=== PATIENT | female | born 1945 | race Caucasian/White ===

== ENCOUNTER 2017-11-13 07:13 | Day surgery (SDC) | payer OTHER ==
[~2017-11-13 07:13] MED LIST: CALTRATE 600 +1 EACH PO; NORVASC5 MG PO; SIMVASTATIN20 MG PO; SYNTHROID88 MCG PO
== END 2017-11-13 13:35 | disposition home or self-care (01) ==
LOC: AMB-ENDOS 07:13
DX: K64.1 Second degree hemorrhoids (principal)

== ENCOUNTER 2020-12-19 09:22 | Inpatient (IN) | payer OTHER ==
[~2020-12-19] VITALS: Ht 152.4 cm; Wt 62.6 kg
[2020-12-20] MEDS ORDERED: ATORVASTATIN CA20 MG (08:14)
[2020-12-20] MEDS ORDERED: SYNTHROID75 MCG (08:15)
[2020-12-31] MEDS ORDERED: PREDNISONE20 MG PO (13:41)
[2020-12-31] MEDS ORDERED: INTESTINEX680 M1 PO (13:41)
[2020-12-31] MEDS ORDERED: LEVOTHYROXINE75 MCG PO (13:41)
[2020-12-31] MEDS ORDERED: NORVASC5 MG PO (13:41)
[2020-12-31] MEDS ORDERED: CHOLESTYRAMINE L4 GM PO (13:41)
[2020-12-31] MEDS ORDERED: PEPCID AC20 MG PO (13:41)
[2020-12-31] MEDS ORDERED: LEVOTHYROXINE88 MCG PO (13:41)
[2020-12-31] MEDS ORDERED: DELZICOL400 M1 PO (13:41)
[2020-12-31] MEDS ORDERED: ATORVASTATIN CA20 MG PO (13:41)
== END 2020-12-31 16:54 | disposition home or self-care (01) | DRG 392 ==
LOC: ER 09:22 → MEDJ 18:44
PROVIDERS: ADMIT Internal Medicine Geriatric Medicine; ATTEND Internal Medicine Geriatric Medicine
PROC: 02HV33Z Insertion of Infusion Device into Superior Vena Cava, Percutaneous Approach (ICD-10-PCS; 2020-12-20)
PROC: 0DBM8ZX Excision of Descending Colon, Via Natural or Artificial Opening Endoscopic, Diagnostic (ICD-10-PCS; principal; 2020-12-28)
PROC: 0DBN8ZX Excision of Sigmoid Colon, Via Natural or Artificial Opening Endoscopic, Diagnostic (ICD-10-PCS; 2020-12-28)
PROC: 0DBP8ZX Excision of Rectum, Via Natural or Artificial Opening Endoscopic, Diagnostic (ICD-10-PCS; 2020-12-28)
DX: K52.89 Other specified noninfective gastroenteritis and colitis (principal); K62.5 Hemorrhage of anus and rectum; E03.8 Other specified hypothyroidism; I10 Essential (primary) hypertension; Z20.822 Contact with and (suspected) exposure to COVID-19

== ENCOUNTER 2021-06-21 07:39 | Outpatient (CLI) | payer OTHER ==
[~2021-06-21 07:39] MED LIST changes: +ATORVASTATIN CA20 MG; +ATORVASTATIN CA20 MG PO; +CHOLESTYRAMINE L4 GM PO; +DELZICOL400 M1 PO; +INTESTINEX680 M1 PO; +LEVOTHYROXINE75 MCG PO; +LEVOTHYROXINE88 MCG PO; +PEPCID AC20 MG PO; +PREDNISONE20 MG PO; +SYNTHROID75 MCG
== END 2021-06-21 09:23 | disposition home or self-care (01) ==
LOC: NUCLEAR 07:39
PROVIDERS: ATTEND Internal Medicine Cardiovascular Disease
DX: I25.118 Atherosclerotic heart disease of native coronary artery with other forms of angina pectoris (principal); I50.1 Left ventricular failure, unspecified
CPT/HCPCS: 78452; 93017; A9500; J0153

== ENCOUNTER 2021-10-10 09:55 | Outpatient (CLI) | payer OTHER | END 2021-10-10 09:56 | disposition home or self-care (01) | LOC: NUCLEAR 09:55 | PROVIDERS: ATTEND Podiatrist Foot & Ankle Surgery | DX: I87.9 Disorder of vein, unspecified (principal); R20.8 Other disturbances of skin sensation ==

== ENCOUNTER → 2021-10-11 09:44 | Outpatient (CLI) | payer OTHER | END | disposition home or self-care (01) | LOC: NUCLEAR 09:44 | PROVIDERS: ATTEND Podiatrist Foot & Ankle Surgery | DX: I87.9 Disorder of vein, unspecified (principal) ==

== ENCOUNTER 2023-09-24 10:32 | Inpatient (IN) | payer OTHER ==
[~2023-09-24] VITALS: Ht 152.4 cm; Wt 62.6 kg
[2023-09-24] MEDS ORDERED: CARBIDOPA-LEVO1 EAC1 (11:08)
[2023-09-24] MEDS ORDERED: FAMOTIDINE/PF 20 MG/2 ML VIAL IV ONE (14:45)
[2023-09-24] MEDS ORDERED: LACTOBACILLUS ACIDOPHILUS 1 CAP CAP PO ONE (14:45)
[2023-09-24] MEDS ORDERED: 0.9 % SODIUM CHLORIDE 500 ML IV ONE (14:45)
[2023-09-24 15:58] LABS: URINE APPEARANCE Cloudy; URINE BILIRRUBIN Negative (NEGATIVE); URINE BLOOD Moderate; URINE COLOR Dark Yellow; URINE GLUCOSE Negative (NEGATIVE); URINE LEUKOCYTE Small; URINE NITRATE Negative; URINE PROTEIN Trace (NEGATIVE); URINE UROBILINOGEN 0.2 E.U./dl
[2023-09-24 16:00] LABS: HEMATOCRIT 41.5 % (36.0-45.00); MEAN CELL VOLUME 84.6 fL (80.00-100.00); MEAN CORPUSCULAR HEMOGLOBIN 28.6 pg (27.00-32.0); MEAN CORPUSCULAR HGB CONC 33.8 g/dl (32.0-36.0); PLATELET COUNT 277 K/uL (150-450); RED BLOOD COUNT 4.91 M/uL (4.00-6.00)
[2023-09-24 16:02] LABS: URINE BACTERIA 2663.4 uL (0.0-1933); URINE EPITHELIAL CELLS 103.4 uL (0.0-38.8); URINE RBC 35.7 uL (0.0-20.8); URINE WBC 138.9 uL (0.0-23.2)
[2023-09-24 16:25] LABS: CALCIUM 9.8 mg/dL (8.5-10.1); CREATININE SERUM 0.97 mg/dL (0.55-1.02); GFR 55.68; POTASSIUM 3.17 mEq/L (3.5-5.1)
[2023-09-24 16:47] LABS: FECAL LEUKOCYTES POSITIVE (NEGATIVE); ob POSITIVE (NEGATIVE)
[2023-09-24] MEDS ORDERED: 0.9 % SODIUM CHLORIDE 1,000 ML IV SCH (20:00)
[2023-09-24] MEDS ORDERED: PANTOPRAZOLE SODIUM 40 MG/VIAL VIAL IV SCH (20:05)
[2023-09-24] MEDS ORDERED: PIPERACILLIN/TAZOBACTAM SODIUM 3.375 GM in DEXTROSE 5 % IN WATER 100 ML IV SCH (20:05)
[2023-09-24] MEDS ORDERED: ACETAMINOPHEN 500 MG GEL..CAP PO PRN (20:15)
[2023-09-24] MEDS ORDERED: POTASSIUM CHLORIDE 20MEQ/100ML H2O PB IV ONE (20:15)
[2023-09-24] MEDS ORDERED: ONDANSETRON HCL 4 MG in 0.9 % SODIUM CHLORIDE 50 ML IV PRN (20:15)
[2023-09-24] MEDS ORDERED: PROMETHAZINE HCL 50 MG/ML AMPUL IM ONE (23:30)
[2023-09-24] MEDS ORDERED: MEPERIDINE HCL/PF 25 MG/ML VIAL IM PRN (23:30)
[2023-09-24] MEDS ORDERED: MEPERIDINE HCL/PF 50 MG/ML VIAL IM ONE (23:30)
[2023-09-25 00:29] LABS: INR 1.04; PARTIAL THROMBOPLASTIN TIME 28.4 SECONDS (22.0-34.0); PROTHROMBIN TIME 10.9 SECONDS (9.0-11.5)
[2023-09-25 00:30] LABS: MAGNESIUM 2.3 mg/dL (1.8-2.4); PHOSPHOROUS 3.4 mg/dL (2.5-4.9)
[2023-09-25] MEDS ORDERED: LEVOTHYROXINE SODIUM 88 MCG TABLET PO SCH (06:00)
[2023-09-25] MEDS ORDERED: CARBIDOPA/LEVODOPA 25/100 UDTAB PO SCH (09:00)
[2023-09-25] MEDS ORDERED: ATORVASTATIN CALCIUM 20 MG TABLET PO SCH (09:00)
[2023-09-25] MEDS ORDERED: AMLODIPINE BESYLATE 5 MG TABLET PO SCH (09:00)
[2023-09-26 00:50] LABS: CALCIUM 8.6 mg/dL (8.5-10.1); CHOL HDL RATIO 2.8 (0-5.0); CREATININE SERUM 0.77 mg/dL (0.55-1.02); GFR 72.69; POTASSIUM 4.26 mEq/L (3.5-5.1)
[2023-09-26] MEDS ORDERED: AA 4.25%/CAL/LYTES/DEXT 5% 1,000 ML PERIFERAL SCH (17:00)
[2023-09-28 05:29] LABS: HEMATOCRIT 37.6 % (36.0-45.00); HEMOGLOBIN 12.8 g/dL (12.0-15.00); MEAN CELL VOLUME 83.7 fL (80.00-100.00); MEAN CORPUSCULAR HEMOGLOBIN 28.5 pg (27.00-32.0); MEAN CORPUSCULAR HGB CONC 34.1 g/dl (32.0-36.0); PLATELET COUNT 279 K/uL (150-450); RED BLOOD COUNT 4.49 M/uL (4.00-6.00); RED CELL DISTRIBUTION WIDTH 13.6 % (11.5-14.5)
[2023-09-28 05:54] LABS: CALCIUM 8.8 mg/dL (8.5-10.1); CREATININE SERUM 0.84 mg/dL (0.55-1.02); GFR 65.74; POTASSIUM 3.01 mEq/L (3.5-5.1)
[2023-09-29] MEDS ORDERED: PEG3350/SOD SULF,BICARB,CL/KCL 4,000 ML GALLON PO ONE (19:00)
[2023-09-30 06:49] LABS: BILIRUBIN TOTAL 0.7 mg/dL (0.3-1.2); BILIRUBIN,CONJUGATED 0.24 mg/dL (0.0-0.2); BILIRUBIN,UNCONJUGATED 0.46 mg/dL (0.0-0.6); TOTAL PROTEIN 6.3 gm/dL (6.4-8.2)
[2023-09-30 07:00] LABS: C-REACTIVE PROTEIN 3.36 MG/DL (0.00-0.29)
[2023-09-30] MEDS ORDERED: METHYLPREDNISOLONE SOD SUCC 40 MG VIAL IV SCH (12:54)
[2023-09-30] MEDS ORDERED: fentaNYL CITRATE 50 MCG/ML AMPUL IV ONE (13:00)
[2023-09-30] MEDS ORDERED: MIDAZOLAM HCL 2 MG/2 ML VIAL IV ONE (13:00)
[2023-10-02 06:41] LABS: HEMATOCRIT 35.6 % (36.0-45.00); HEMOGLOBIN 12.2 g/dL (12.0-15.00); MEAN CELL VOLUME 82.2 fL (80.00-100.00); MEAN CORPUSCULAR HEMOGLOBIN 28.1 pg (27.00-32.0); MEAN CORPUSCULAR HGB CONC 34.2 g/dl (32.0-36.0); PLATELET COUNT 310 K/uL (150-450); RED BLOOD COUNT 4.33 M/uL (4.00-6.00)
[2023-10-02 10:31] LABS: ALBUMIN 3.1 gm/dL (3.4-5.0); BILIRUBIN TOTAL 0.6 mg/dL (0.3-1.2); CALCIUM 9.1 mg/dL (8.5-10.1); CREATININE SERUM 1.07 mg/dL (0.55-1.02); GFR 49.72; GLOBULINA 3.6 G/DL (2.4-3.5); TOTAL PROTEIN 6.7 gm/dL (6.4-8.2)
[2023-10-02 10:38] LABS: POTASSIUM 2.73 mEq/L (3.5-5.1)
[2023-10-02] MEDS ORDERED: POTASSIUM CHLORIDE 20MEQ/100ML H2O PB IV ONE (14:45)
[2023-10-05 12:36] LABS: HEMATOCRIT 36.2 % (36.0-45.00); HEMOGLOBIN 12.1 g/dL (12.0-15.00); MEAN CELL VOLUME 85.2 fL (80.00-100.00); MEAN CORPUSCULAR HEMOGLOBIN 28.6 pg (27.00-32.0); MEAN CORPUSCULAR HGB CONC 33.6 g/dl (32.0-36.0); PLATELET COUNT 247 K/uL (150-450); RED BLOOD COUNT 4.24 M/uL (4.00-6.00)
[2023-10-05 12:59] LABS: ALBUMIN 2.9 gm/dL (3.4-5.0); BILIRUBIN TOTAL 0.45 mg/dL (0.3-1.2); CALCIUM 8.8 mg/dL (8.5-10.1); CREATININE SERUM 0.87 mg/dL (0.55-1.02); GFR 63.13; GLOBULINA 3.5 G/DL (2.4-3.5); MAGNESIUM 2.4 mg/dL (1.8-2.4); PHOSPHOROUS 2.8 mg/dL (2.5-4.9); POTASSIUM 3.57 mEq/L (3.5-5.1); TOTAL PROTEIN 6.4 gm/dL (6.4-8.2)
[2023-10-05] MEDS ORDERED: PREDNISONE 20 MG TABLET PO SCH (16:11)
[2023-10-05] MEDS ORDERED: METHYLPREDNISOLONE SOD SUCC 40 MG VIAL IV SCH (21:00)
[2023-10-05] MEDS ORDERED: GABAPENTIN 300 MG CAPSULE PO SCH (21:00)
[2023-10-06] MEDS ORDERED: FAMOtidine 20 MG TABLET PO SCH (09:00)
[2023-10-07] MEDS ORDERED: CARBIDOPA-LEVO1 EA10 PO (11:03)
[2023-10-07] MEDS ORDERED: LEVOTHYROXINE88 MCG PO (11:03)
[2023-10-07] MEDS ORDERED: AMLODIPINE BESYL5 MG PO (11:03)
[2023-10-07] MEDS ORDERED: FAMOTIDINE20 MG PO (11:03)
[2023-10-07] MEDS ORDERED: LIPITOR20 MG PO (11:03)
[2023-10-07] MEDS ORDERED: PREDNISONE20 MG PO (11:03)
[2023-10-07] MEDS ORDERED: GABAPENTIN300 MG PO (11:03)
== END 2023-10-07 13:15 | disposition home or self-care (01) | DRG 386 ==
LOC: ER 10:33 → SEC-K 20:40 → MEDJ 20:40
PROVIDERS: General Practice; Internal Medicine; Internal Medicine Gastroenterology; Nurse Practitioner Family; ADMIT Internal Medicine; ATTEND Internal Medicine
PROC: BW21ZZZ Computerized Tomography (CT Scan) of Abdomen and Pelvis (ICD-10-PCS; 2023-09-24)
PROC: 3E0336Z Introduction of Nutritional Substance into Peripheral Vein, Percutaneous Approach (ICD-10-PCS; 2023-09-27)
PROC: BW21ZZZ Computerized Tomography (CT Scan) of Abdomen and Pelvis (ICD-10-PCS; 2023-09-29)
PROC: 0DBK8ZX Excision of Ascending Colon, Via Natural or Artificial Opening Endoscopic, Diagnostic (ICD-10-PCS; principal; 2023-09-30)
PROC: 0DBL8ZX Excision of Transverse Colon, Via Natural or Artificial Opening Endoscopic, Diagnostic (ICD-10-PCS; 2023-09-30)
PROC: 0DBP8ZX Excision of Rectum, Via Natural or Artificial Opening Endoscopic, Diagnostic (ICD-10-PCS; 2023-09-30)
PROC: 0DBB8ZX Excision of Ileum, Via Natural or Artificial Opening Endoscopic, Diagnostic (ICD-10-PCS; 2023-09-30)
PROC: 0DBM8ZX Excision of Descending Colon, Via Natural or Artificial Opening Endoscopic, Diagnostic (ICD-10-PCS; 2023-09-30)
DX: K51.90 Ulcerative colitis, unspecified, without complications (principal); K92.1 Melena; K62.89 Other specified diseases of anus and rectum; E87.6 Hypokalemia; I10 Essential (primary) hypertension; E03.9 Hypothyroidism, unspecified; G20.A1 Parkinson's disease without dyskinesia, without mention of fluctuations; D72.828 Other elevated white blood cell count

== ENCOUNTER 2024-02-08 12:21 | Inpatient (IN) | payer OTHER ==
[~2024-02-08] VITALS: Ht 152.4 cm; Wt 56.7 kg
[~2024-02-08 12:21] MED LIST changes: +AMLODIPINE BESYL5 MG PO; +CARBIDOPA-LEVO1 EA10 PO; +CARBIDOPA-LEVO1 EAC1; +FAMOTIDINE20 MG PO; +GABAPENTIN300 MG PO; +LIPITOR20 MG PO
[2024-02-08] MEDS ORDERED: 0.9 % SODIUM CHLORIDE 1,000 ML IV SCH (13:15)
[2024-02-08 14:35] LABS: HEMATOCRIT 37.4 % (36.0-45.00); HEMOGLOBIN 12.6 g/dL (12.0-15.00); MEAN CELL VOLUME 83.7 fL (80.00-100.00); MEAN CORPUSCULAR HEMOGLOBIN 28.3 pg (27.00-32.0); MEAN CORPUSCULAR HGB CONC 33.7 g/dl (32.0-36.0); PLATELET COUNT 209 K/uL (150-450); RED BLOOD COUNT 4.47 M/uL (4.00-6.00)
[2024-02-08 15:01] LABS: INR 0.99; PARTIAL THROMBOPLASTIN TIME 24.2 SECONDS (22.0-34.0); PROTHROMBIN TIME 10.4 SECONDS (9.0-11.5)
[2024-02-08 15:02] LABS: CREATININE SERUM 1.06 mg/dL (0.55-1.02); GFR 50.13; POTASSIUM 3.69 mEq/L (3.5-5.1)
[2024-02-08] MEDS ORDERED: CEFTRIAXONE SODIUM 1,000 MG VIAL IV ONE (15:15)
[2024-02-08] MEDS ORDERED: CEFTRIAXONE SODIUM 1,000 MG VIAL ONE (15:29)
[2024-02-08 16:49] LABS: PH,URINE 6.5 (5.0-8.0); URINE APPEARANCE Clear; URINE BILIRRUBIN Negative (NEGATIVE); URINE BLOOD Negative; URINE COLOR Yellow; URINE GLUCOSE Negative (NEGATIVE); URINE KETONE Negative (NEGATIVE); URINE LEUKOCYTE Trace; URINE NITRATE Negative; URINE PROTEIN Negative (NEGATIVE); URINE UROBILINOGEN 0.2 E.U./dl
[2024-02-08 16:53] LABS: URINE BACTERIA 236.7 uL (0.0-1933); URINE EPITHELIAL CELLS 9.2 uL (0.0-38.8); URINE RBC 3.3 uL (0.0-20.8); URINE WBC 75.4 uL (0.0-23.2)
[2024-02-08 17:15] LABS: URINE CAST 0.15 uL (0.0-1.40)
[2024-02-08] MEDS ORDERED: PIPERACILLIN/TAZOBACTAM SODIUM 3.375 GM in DEXTROSE 5 % IN WATER 100 ML IV SCH (21:53)
[2024-02-08] MEDS ORDERED: VANCOMYCIN HCL 1,000 MG in 0.9 % SODIUM CHLORIDE 250 ML IV SCH (21:53)
[2024-02-08] MEDS ORDERED: GABAPENTIN 300 MG CAPSULE PO SCH (21:54)
[2024-02-08] MEDS ORDERED: MEPERIDINE HCL/PF 25 MG/ML VIAL IM ONE (22:00)
[2024-02-08] MEDS ORDERED: ONDANSETRON HCL 4 MG in 0.9 % SODIUM CHLORIDE 50 ML IV PRN (22:00)
[2024-02-08] MEDS ORDERED: ACETAMINOPHEN 500 MG GEL..CAP PO PRN (22:00)
[2024-02-08] MEDS ORDERED: KETOROLAC TROMETHAMINE 30 MG VIAL IU ONE (22:00)
[2024-02-09] MEDS ORDERED: KETOROLAC TROMETHAMINE 30 MG VIAL ONE (00:38)
[2024-02-09] MEDS ORDERED: VANCOMYCIN HCL 1,000 MG VIAL ONE (00:39)
[2024-02-09] MEDS ORDERED: PIPERACILLIN/TAZOBACTAM SODIUM 3.375 GM VIAL IV ONE (00:39)
[2024-02-09 01:40] LABS: INR 1.06; PARTIAL THROMBOPLASTIN TIME 27.9 SECONDS (22.0-34.0); PROTHROMBIN TIME 11.1 SECONDS (9.0-11.5)
[2024-02-09 01:47] VITALS: BP 109/69
[2024-02-09 06:00] VITALS: BP 122/65
[2024-02-09] MEDS ORDERED: LEVOTHYROXINE SODIUM 88 MCG TABLET PO SCH (06:00)
[2024-02-09] MEDS ORDERED: FAMOTIDINE/PF 20 MG in 0.9 % SODIUM CHLORIDE 8 ML IV PUSH SCH (09:00)
[2024-02-09] MEDS ORDERED: ENOXAPARIN SODIUM 40 MG/0.4 ML SYRINGE SUBCUTANEO SCH (09:00)
[2024-02-09] MEDS ORDERED: AMLODIPINE BESYLATE 5 MG TABLET PO SCH (09:00)
[2024-02-09 09:07] VITALS: BP 118/65
[2024-02-09] MEDS ORDERED: FAMOTIDINE/PF 20 MG/2 ML VIAL ONE (09:10)
[2024-02-09 16:43] VITALS: BP 115/56; O2SAT 99
[2024-02-09] MEDS ORDERED: LACTOBACILLUS ACIDOPHILUS 1 CAP CAP PO SCH (17:00)
[2024-02-09] MEDS ORDERED: 0.9 % SODIUM CHLORIDE 10 ML VIAL IJ ONE (21:06)
[2024-02-10] VITALS: BP 131/74
[2024-02-10 08:56] VITALS: BP 114/63
[2024-02-10] MEDS ORDERED: PREDNISONE 10 MG TABLET PO SCH (09:00)
[2024-02-10] MEDS ORDERED: SODIUM HYPOCHLORITE 1OZ TOP SCH (10:04)
[2024-02-10 17:17] LABS: URINE APPEARANCE Turbid; URINE BILIRRUBIN Negative (NEGATIVE); URINE BLOOD Small; URINE COLOR Yellow; URINE KETONE Negative (NEGATIVE); URINE LEUKOCYTE Trace; URINE NITRATE Negative; URINE PROTEIN Trace (NEGATIVE); URINE UROBILINOGEN 0.2 E.U./dl
[2024-02-10 17:18] LABS: URINE BACTERIA 251.9 uL (0.0-1933); URINE EPITHELIAL CELLS 20.4 uL (0.0-38.8); URINE RBC 25.1 uL (0.0-20.8); URINE WBC 79.9 uL (0.0-23.2)
[2024-02-10 17:39] LABS: URINE GLUCOSE >=1000 MG/DL (NEGATIVE)
[2024-02-10 18:51] VITALS: BP 117/72; O2SAT 98
[2024-02-11 01:53] VITALS: BP 132/73; O2SAT 97
[2024-02-11 09:00] LABS: HEMATOCRIT 34.8 % (36.0-45.00); HEMOGLOBIN 11.8 g/dL (12.0-15.00); MEAN CELL VOLUME 82.5 fL (80.00-100.00); MEAN CORPUSCULAR HGB CONC 33.9 g/dl (32.0-36.0); PLATELET COUNT 216 K/uL (150-450); RED BLOOD COUNT 4.22 M/uL (4.00-6.00); RED CELL DISTRIBUTION WIDTH 14.8 % (11.5-14.5)
[2024-02-11] MEDS ORDERED: FAMOtidine 20 MG TABLET PO SCH (09:00)
[2024-02-11] MEDS ORDERED: KETOROLAC TROMETHAMINE 30 MG VIAL IV PRN (09:15)
[2024-02-11 09:33] LABS: ALBUMIN 1.9 gm/dL (3.4-5.0); BILIRUBIN TOTAL 0.71 mg/dL (0.3-1.2); CREATININE SERUM 0.84 mg/dL (0.55-1.02); GFR 65.57; GLOBULINA 3.3 G/DL (2.4-3.5); POTASSIUM 3.43 mEq/L (3.5-5.1); TOTAL PROTEIN 5.2 gm/dL (6.4-8.2)
[2024-02-11 09:39] VITALS: BP 126/65
[2024-02-11 10:32] LABS: C-REACTIVE PROTEIN 21.4 MG/DL (0.00-0.29)
[2024-02-11 10:33] LABS: PHOSPHOROUS 1.7 mg/dL (2.5-4.9)
[2024-02-11] MEDS ORDERED: MESALAMINE 400 MG CAP.DRTAB. PO SCH (17:00)
[2024-02-11] MEDS ORDERED: POTASSIUM PHOS,M-BASIC-D-BASIC 18 MM in 0.9 % SODIUM CHLORIDE 250 ML IV SCH (17:00)
[2024-02-11 18:05] VITALS: BP 122/60; O2SAT 98
[2024-02-11] MEDS ORDERED: VANCOMYCIN HCL 1,000 MG in 0.9 % SODIUM CHLORIDE 250 ML IV SCH (21:00)
[2024-02-12 01:20] VITALS: BP 155/73; O2SAT 98
[2024-02-12] MEDS ORDERED: PREDNISONE 20 MG TABLET PO SCH (09:00)
[2024-02-12 09:13] VITALS: BP 104/63
[2024-02-12 17:45] VITALS: BP 138/76; O2SAT 98
[2024-02-13 02:59] VITALS: BP 113/73; O2SAT 96
[2024-02-13 09:01] LABS: ALBUMIN 1.6 gm/dL (3.4-5.0); BILIRUBIN TOTAL 0.48 mg/dL (0.3-1.2); CALCIUM 7.5 mg/dL (8.5-10.1); CREATININE SERUM 0.8 mg/dL (0.55-1.02); GFR 69.37; GLOBULINA 3.3 G/DL (2.4-3.5); MAGNESIUM 1.9 mg/dL (1.8-2.4); POTASSIUM 3.32 mEq/L (3.5-5.1); TOTAL PROTEIN 4.9 gm/dL (6.4-8.2)
[2024-02-13 09:05] LABS: C-REACTIVE PROTEIN 23.6 MG/DL (0.00-0.29)
[2024-02-13 09:29] VITALS: BP 118/69
[2024-02-13 10:38] LABS: HEMATOCRIT 30.6 % (36.0-45.00); HEMOGLOBIN 10.4 g/dL (12.0-15.00); MEAN CELL VOLUME 82.3 fL (80.00-100.00); PLATELET COUNT 205 K/uL (150-450); RED BLOOD COUNT 3.72 M/uL (4.00-6.00); RED CELL DISTRIBUTION WIDTH 14.9 % (11.5-14.5)
[2024-02-13 10:57] LABS: ERYTHROCYTE SEDIMENTATION RATE 97 mm/hr
[2024-02-13 17:59] VITALS: BP 144/69
[2024-02-14 03:24] VITALS: BP 150/79
[2024-02-14 09:15] VITALS: BP 137/72
[2024-02-14 18:25] VITALS: BP 120/66
[2024-02-14] MEDS ORDERED: CLOTRIMAZOLE 10 MG TROCHE MM SCH (21:00)
[2024-02-15 03:23] VITALS: BP 163/82; O2SAT 95
[2024-02-15] MEDS ORDERED: TUBERCULIN,PURIF.PROT.DERIV. 10 SKIN.TEST SKIN.TEST ID NR (06:45)
[2024-02-15] MEDS ORDERED: FLUCONAZOLE 100 MG TABLET PO SCH (09:00)
[2024-02-15 09:56] VITALS: BP 127/71; O2SAT 99
[2024-02-15 17:16] VITALS: BP 145/72
[2024-02-16] VITALS: BP 124/72
[2024-02-16 07:09] LABS: hav igm Negative (Negative); hcv Non Reactive (Non Reactive); hep b c Negative (Negative); hep b s ag Negative (Negative)
[2024-02-16 09:05] LABS: HEMATOCRIT 29.5 % (36.0-45.00); HEMOGLOBIN 10.1 g/dL (12.0-15.00); MEAN CELL VOLUME 83.5 fL (80.00-100.00); MEAN CORPUSCULAR HEMOGLOBIN 28.7 pg (27.00-32.0); MEAN CORPUSCULAR HGB CONC 34.3 g/dl (32.0-36.0); PLATELET COUNT 213 K/uL (150-450); RED BLOOD COUNT 3.53 M/uL (4.00-6.00); RED CELL DISTRIBUTION WIDTH 14.9 % (11.5-14.5)
[2024-02-16 09:42] VITALS: BP 146/67; O2SAT 98
[2024-02-16 09:59] LABS: ALBUMIN 1.6 gm/dL (3.4-5.0); BILIRUBIN TOTAL 0.46 mg/dL (0.3-1.2); CALCIUM 7.7 mg/dL (8.5-10.1); CREATININE SERUM 1.2 mg/dL (0.55-1.02); GFR 43.45; GLOBULINA 2.9 G/DL (2.4-3.5); MAGNESIUM 1.9 mg/dL (1.8-2.4); POTASSIUM 3.18 mEq/L (3.5-5.1); TOTAL PROTEIN 4.5 gm/dL (6.4-8.2)
[2024-02-16 10:01] LABS: C-REACTIVE PROTEIN 5.15 MG/DL (0.00-0.29)
[2024-02-16 16:00] VITALS: BP 136/76; O2SAT 95
[2024-02-17 03:29] VITALS: BP 146/81; O2SAT 95
[2024-02-17 09:31] VITALS: BP 151/71
[2024-02-17 10:55] LABS: CALCIUM 8.1 mg/dL (8.5-10.1); CREATININE SERUM 1.17 mg/dL (0.55-1.02); GFR 44.74; PHOSPHOROUS 2.2 mg/dL (2.5-4.9); POTASSIUM 3.15 mEq/L (3.5-5.1)
[2024-02-17 19:50] VITALS: BP 144/81
[2024-02-18 03:24] VITALS: BP 164/80
[2024-02-18] MEDS ORDERED: VANCOMYCIN HCL 1,000 MG in 0.9 % SODIUM CHLORIDE 250 ML IV SCH (09:00)
[2024-02-18] MEDS ORDERED: ENOXAPARIN SODIUM 30 MG/0.3 ML SYRINGE SUBCUTANEO SCH (09:00)
[2024-02-18 09:53] VITALS: BP 153/80
[2024-02-18 15:48] LABS: HEMOGLOBIN 11.8 g/dL (12.0-15.00); MEAN CELL VOLUME 82.7 fL (80.00-100.00); MEAN CORPUSCULAR HEMOGLOBIN 27.9 pg (27.00-32.0); MEAN CORPUSCULAR HGB CONC 33.7 g/dl (32.0-36.0); PLATELET COUNT 266 K/uL (150-450); RED BLOOD COUNT 4.23 M/uL (4.00-6.00)
[2024-02-18 16:21] LABS: BILIRUBIN TOTAL 0.37 mg/dL (0.3-1.2); CALCIUM 8.2 mg/dL (8.5-10.1); CREATININE SERUM 1.22 mg/dL (0.55-1.02); GFR 42.63; GLOBULINA 3.3 G/DL (2.4-3.5); MAGNESIUM 1.8 mg/dL (1.8-2.4); TOTAL PROTEIN 5.3 gm/dL (6.4-8.2)
[2024-02-18 16:54] LABS: PHOSPHOROUS 1.8 mg/dL (2.5-4.9); POTASSIUM 2.75 mEq/L (3.5-5.1)
[2024-02-18 19:21] VITALS: BP 164/78
[2024-02-18] MEDS ORDERED: POTASSIUM CHLORIDE IN WATER 100 ML IV ONE (21:30)
[2024-02-18] MEDS ORDERED: POTASSIUM PHOS,M-BASIC-D-BASIC 15 MM in 0.9 % SODIUM CHLORIDE 250 ML IV ONE (23:30)
[2024-02-19 02:32] VITALS: BP 147/74; O2SAT 98
[2024-02-19 08:53] LABS: ALBUMIN 1.9 gm/dL (3.4-5.0); BILIRUBIN TOTAL 0.48 mg/dL (0.3-1.2); CALCIUM 7.8 mg/dL (8.5-10.1); CREATININE SERUM 1.07 mg/dL (0.55-1.02); GFR 49.59; GLOBULINA 3.3 G/DL (2.4-3.5); MAGNESIUM 1.9 mg/dL (1.8-2.4); PHOSPHOROUS 4.4 mg/dL (2.5-4.9); POTASSIUM 4.04 mEq/L (3.5-5.1); TOTAL PROTEIN 5.2 gm/dL (6.4-8.2)
[2024-02-19 10:53] VITALS: BP 162/74; O2SAT 98
[2024-02-19] MEDS ORDERED: VANCOMYCIN HCL 1,000 MG VIAL IV SCH (17:00)
[2024-02-19 19:38] VITALS: BP 134/69; O2SAT 99
[2024-02-19] MEDS ORDERED: CEFEPIME HCL 2,000 MG VIAL IV SCH (21:00)
[2024-02-20 02:04] VITALS: BP 149/76; O2SAT 95
[2024-02-20] MEDS ORDERED: VANCOMYCIN HCL 1,000 MG VIAL IV SCH (09:00)
[2024-02-20 10:52] VITALS: BP 151/70; O2SAT 99
[2024-02-20] MEDS ORDERED: KETOROLAC TROMETHAMINE 30 MG VIAL IV PRN (16:45)
[2024-02-20 17:54] VITALS: BP 137/73
[2024-02-20] MEDS ORDERED: TRAMADOL HCL 50 MG TABLET PO SCH (21:57)
[2024-02-21 01:36] VITALS: BP 158/85; O2SAT 98
[2024-02-21 10:24] VITALS: BP 148/67; O2SAT 97
[2024-02-21 17:14] VITALS: BP 138/75
[2024-02-22 02:11] VITALS: BP 159/68; O2SAT 97
[2024-02-22 10:25] VITALS: BP 158/74; O2SAT 97
[2024-02-22 16:20] VITALS: BP 163/72; O2SAT 97
[2024-02-23] VITALS: BP 146/76
[2024-02-23 06:44] LABS: HEMATOCRIT 32.8 % (36.0-45.00); HEMOGLOBIN 11.1 g/dL (12.0-15.00); MEAN CELL VOLUME 83.1 fL (80.00-100.00); MEAN CORPUSCULAR HEMOGLOBIN 28.2 pg (27.00-32.0); MEAN CORPUSCULAR HGB CONC 33.9 g/dl (32.0-36.0); PLATELET COUNT 216 K/uL (150-450); RED BLOOD COUNT 3.95 M/uL (4.00-6.00); RED CELL DISTRIBUTION WIDTH 15.7 % (11.5-14.5)
[2024-02-23 07:14] LABS: ALBUMIN 1.9 gm/dL (3.4-5.0); BILIRUBIN TOTAL 0.33 mg/dL (0.3-1.2); CREATININE SERUM 0.93 mg/dL (0.55-1.02); GFR 58.31; GLOBULINA 3.2 G/DL (2.4-3.5); MAGNESIUM 2.3 mg/dL (1.8-2.4); PHOSPHOROUS 2.3 mg/dL (2.5-4.9); POTASSIUM 4.05 mEq/L (3.5-5.1); TOTAL PROTEIN 5.1 gm/dL (6.4-8.2)
[2024-02-23 07:15] LABS: C-REACTIVE PROTEIN 2.82 MG/DL (0.00-0.29)
[2024-02-23 08:00] VITALS: BP 162/85
[2024-02-23 20:37] VITALS: BP 152/77; O2SAT 98
[2024-02-24 03:05] VITALS: BP 120/75; O2SAT 98
[2024-02-24 11:22] VITALS: BP 168/86; O2SAT 96
[2024-02-24 19:14] VITALS: BP 150/80; O2SAT 97
[2024-02-25 03:05] VITALS: BP 161/84
[2024-02-25 08:41] VITALS: BP 164/71
[2024-02-25] MEDS ORDERED: SODIUM CHLORIDE 0.45 % 1,000 ML IV SCH (10:00)
[2024-02-25 16:00] VITALS: BP 137/79; O2SAT 98
[2024-02-25] MEDS ORDERED: AMLODIPINE BESYLATE 5 MG TABLET PO SCH (17:00)
[2024-02-25] MEDS ORDERED: VANCOMYCIN HCL 1,000 MG VIAL IV SCH (17:00)
[2024-02-26 00:30] VITALS: BP 136/76; O2SAT 96
[2024-02-26 09:14] VITALS: BP 138/72
[2024-02-26 14:28] LABS: ob POSITIVE (NEGATIVE)
[2024-02-26 18:40] VITALS: BP 122/64
[2024-02-27 02:49] VITALS: BP 129/76; O2SAT 96
[2024-02-27 09:15] VITALS: BP 174/88; O2SAT 98
[2024-02-27 15:44] LABS: MEAN CELL VOLUME 85.5 fL (80.00-100.00); MEAN CORPUSCULAR HGB CONC 34.1 g/dl (32.0-36.0); PLATELET COUNT 210 K/uL (150-450); RED BLOOD COUNT 2.61 M/uL (4.00-6.00); RED CELL DISTRIBUTION WIDTH 16.4 % (11.5-14.5)
[2024-02-27 15:48] LABS: MEAN CORPUSCULAR HEMOGLOBIN 29.1 pg (27.00-32.0)
[2024-02-27 15:49] LABS: HEMATOCRIT 22.4 % (36.0-45.00); HEMOGLOBIN 7.6 g/dL (12.0-15.00)
[2024-02-27 16:01] LABS: ALBUMIN 2.2 gm/dL (3.4-5.0); BILIRUBIN TOTAL 0.32 mg/dL (0.3-1.2); CALCIUM 8.5 mg/dL (8.5-10.1); CREATININE SERUM 1.02 mg/dL (0.55-1.02); GFR 52.41; GLOBULINA 2.7 G/DL (2.4-3.5); MAGNESIUM 2.1 mg/dL (1.8-2.4); PHOSPHOROUS 2.1 mg/dL (2.5-4.9); TOTAL PROTEIN 4.9 gm/dL (6.4-8.2)
[2024-02-27 16:15] LABS: POTASSIUM 2.7 mEq/L (3.5-5.1)
[2024-02-27] MEDS ORDERED: FUROsemide 20 MG/2 ML VIAL IV SCH (16:15)
[2024-02-27] MEDS ORDERED: POTASSIUM PHOS,M-BASIC-D-BASIC 18 MM in 0.9 % SODIUM CHLORIDE 250 ML IV NR (16:30)
[2024-02-27 19:18] VITALS: BP 147/76
[2024-02-27] MEDS ORDERED: PANTOPRAZOLE SODIUM 40 MG/VIAL VIAL IV PUSH SCH (21:00)
[2024-02-28 02:33] VITALS: BP 126/69; O2SAT 97
[2024-02-28 08:00] VITALS: BP 182/82; O2SAT 97
[2024-02-28 18:19] VITALS: BP 149/71
[2024-02-29 03:15] VITALS: BP 136/75; O2SAT 98
[2024-02-29 08:37] LABS: HEMATOCRIT 29.3 % (36.0-45.00); HEMOGLOBIN 10.1 g/dL (12.0-15.00); MEAN CELL VOLUME 85.7 fL (80.00-100.00); MEAN CORPUSCULAR HEMOGLOBIN 29.6 pg (27.00-32.0); MEAN CORPUSCULAR HGB CONC 34.5 g/dl (32.0-36.0); PLATELET COUNT 192 K/uL (150-450); RED BLOOD COUNT 3.42 M/uL (4.00-6.00); RED CELL DISTRIBUTION WIDTH 17.1 % (11.5-14.5)
[2024-02-29 10:31] VITALS: BP 140/71
[2024-02-29 18:31] VITALS: BP 173/86
[2024-02-29 20:35] LABS: HEMATOCRIT 31.8 % (36.0-45.00); HEMOGLOBIN 10.9 g/dL (12.0-15.00); MEAN CELL VOLUME 85.9 fL (80.00-100.00); MEAN CORPUSCULAR HEMOGLOBIN 29.5 pg (27.00-32.0); MEAN CORPUSCULAR HGB CONC 34.4 g/dl (32.0-36.0); PLATELET COUNT 184 K/uL (150-450); RED CELL DISTRIBUTION WIDTH 17.3 % (11.5-14.5)
[2024-02-29 20:49] LABS: MAGNESIUM 2.1 mg/dL (1.8-2.4); PHOSPHOROUS 2.2 mg/dL (2.5-4.9)
[2024-02-29 20:51] LABS: ALBUMIN 2.4 gm/dL (3.4-5.0); BILIRUBIN TOTAL 0.36 mg/dL (0.3-1.2); CREATININE SERUM 1.03 mg/dL (0.55-1.02); GFR 51.82; GLOBULINA 2.9 G/DL (2.4-3.5); POTASSIUM 3.53 mEq/L (3.5-5.1); TOTAL PROTEIN 5.3 gm/dL (6.4-8.2)
[2024-03-01 01:49] VITALS: BP 151/71
[2024-03-01 11:19] VITALS: BP 150/88
[2024-03-01 16:00] VITALS: BP 156/743; O2SAT 97
[2024-03-01] MEDS ORDERED: CEFTRIAXONE SODIUM 2,000 MG VIAL IV SCH (17:00)
[2024-03-01] MEDS ORDERED: DOXYCYCLINE HYCLATE 100 MG TABLET PO SCH (21:00)
[2024-03-02 02:53] VITALS: BP 168/72
[2024-03-02 10:47] VITALS: BP 150/76
[2024-03-02 19:05] VITALS: BP 160/80; O2SAT 97
[2024-03-03 02:48] VITALS: BP 117/53
[2024-03-03 07:17] LABS: HEMATOCRIT 30.3 % (36.0-45.00); HEMOGLOBIN 10.5 g/dL (12.0-15.00); MEAN CELL VOLUME 86.1 fL (80.00-100.00); MEAN CORPUSCULAR HEMOGLOBIN 29.7 pg (27.00-32.0); MEAN CORPUSCULAR HGB CONC 34.5 g/dl (32.0-36.0); PLATELET COUNT 150 K/uL (150-450); RED BLOOD COUNT 3.52 M/uL (4.00-6.00); RED CELL DISTRIBUTION WIDTH 17.8 % (11.5-14.5)
[2024-03-03 07:26] LABS: CALCIUM 7.8 mg/dL (8.5-10.1); CREATININE SERUM 0.92 mg/dL (0.55-1.02); GFR 59.04; POTASSIUM 3.87 mEq/L (3.5-5.1)
[2024-03-03 08:48] VITALS: BP 154/70; O2SAT 96
[2024-03-03] MEDS ORDERED: LIPITOR20 MG PO (10:32)
[2024-03-03] MEDS ORDERED: AMLODIPINE BESYL5 MG PO (10:32)
[2024-03-03] MEDS ORDERED: DOXYCYCLINE HY100 M2 PO (10:32)
[2024-03-03] MEDS ORDERED: INTESTINEX680 M1 PO (10:33)
[2024-03-03] MEDS ORDERED: DELZICOL400 M1 PO (10:33)
[2024-03-03] MEDS ORDERED: CARBIDOPA-LEVO1 EA10 PO (10:33)
[2024-03-03] MEDS ORDERED: GABAPENTIN300 MG PO (10:33)
[2024-03-03] MEDS ORDERED: FAMOTIDINE20 MG PO (10:33)
[2024-03-03] MEDS ORDERED: CLOTRIMAZOLE10 MG MM (10:34)
[2024-03-03] MEDS ORDERED: LEVOTHYROXINE88 MCG PO (10:34)
[2024-03-03] MEDS ORDERED: PREDNISONE20 MG PO (10:34)
== END 2024-03-03 13:51 | disposition home or self-care (01) | DRG 579 ==
LOC: ER 12:21 → MEDI 22:04 → MEDJ 02-09 19:13
PROVIDERS: Emergency Medicine; General Practice; Internal Medicine; Internal Medicine Gastroenterology; Internal Medicine Infectious Disease; Specialist; ADMIT Internal Medicine; ATTEND Internal Medicine
PROC: B54DZZZ Ultrasonography of Bilateral Lower Extremity Veins (ICD-10-PCS; 2024-02-08)
PROC: 0JBD0ZX Excision of Right Upper Arm Subcutaneous Tissue and Fascia, Open Approach, Diagnostic (ICD-10-PCS; 2024-02-09)
PROC: 0JDP0ZZ Extraction of Left Lower Leg Subcutaneous Tissue and Fascia, Open Approach (ICD-10-PCS; principal; 2024-02-16)
PROC: 30233N1 Transfusion of Nonautologous Red Blood Cells into Peripheral Vein, Percutaneous Approach (ICD-10-PCS; 2024-02-28)
PROC: 02HV33Z Insertion of Infusion Device into Superior Vena Cava, Percutaneous Approach (ICD-10-PCS; 2024-03-02)
DX: L03.116 Cellulitis of left lower limb (principal); A41.9 Sepsis, unspecified organism; G92.8 Other toxic encephalopathy; L02.413 Cutaneous abscess of right upper limb; L88 Pyoderma gangrenosum; K51.20 Ulcerative (chronic) proctitis without complications; D64.9 Anemia, unspecified; S80.822A Blister (nonthermal), left lower leg, initial encounter; I10 Essential (primary) hypertension; E03.9 Hypothyroidism, unspecified; E78.5 Hyperlipidemia, unspecified; I87.2 Venous insufficiency (chronic) (peripheral); T36.1X5A Adverse effect of cephalosporins and other beta-lactam antibiotics, initial encounter; E87.6 Hypokalemia; G20.A1 Parkinson's disease without dyskinesia, without mention of fluctuations